=== PATIENT | male | born 2000 ===

== ENCOUNTER 2023-11-24 10:21 | Emergency (ER) | payer SELFPAY ==
[2023-11-24] MEDS: Orphenadrine 60 MG/2 ML Inj IM STA (10:54)
[2023-11-24] MEDS: Ketorolac 30 MG/ML SDV IM STA (10:54)
[2023-11-24] MEDS: Ondansetron 4 MG Tab.DIS PO STA (11:49)
== END 2023-11-24 11:54 | disposition home or self-care (01) ==
LOC: MW.ED 10:21
DX: M54.41 Lumbago with sciatica, right side (principal); Z75.8 Other problems related to medical facilities and other health care; Z88.8 Allergy status to other drugs, medicaments and biological substances; Z79.899 Other long term (current) drug therapy
CPT/HCPCS: 96372; 99283; A9270; J1885; J2360